=== PATIENT | female | born 1975 | race Caucasian/White ===

== ENCOUNTER → 2018-04-08 | Outpatient (CLI) | payer OTHER ==
--- NOTE | 2018-04-08 14:16 | Diagnostic Imaging Report ---
PROCEDURE: CT abdomen and pelvis without contrast. TECHNIQUE: Multiple contiguous axial images were obtained through the abdomen and pelvis without the use of intravenous contrast. INDICATION: Microhematuria and abdominal pain. FINDINGS: The lung bases are clear. The liver is normal in size without focal lesions. Gallbladder is unremarkable. There is no biliary ductal dilatation. Spleen is normal. Pancreas and adrenal glands are unremarkable. There is no evidence of nephrolithiasis or obstructive uropathy. The aorta is nonaneurysmal. Bowel gas pattern is nonspecific. There is diverticular disease of the colon without evidence of diverticulitis. The bladder is nondistended. There is some bladder wall thickening, however, this is likely simply related to underdistention. There is no pelvic mass or adenopathy. There are mild degenerative changes in the spine. IMPRESSION: Mild bladder wall thickening likely due to underdistention, although cystitis cannot be excluded. Recommend clinical correlation. No evidence of nephrolithiasis or obstructive uropathy. Diverticular disease without evidence of diverticulitis. Dictated by: Dictated on workstation # [id number]
== END ==
LOC: RAD 13:07
PROVIDERS: ATTEND Urology
DX: K57.30 Diverticulosis of large intestine without perforation or abscess without bleeding (principal); N32.89 Other specified disorders of bladder; R31.29 Other microscopic hematuria
CPT/HCPCS: 74176